=== PATIENT | female | born 1955 | race Caucasian/White ===

== ENCOUNTER 2025-03-11 15:31 | Outpatient (AMB) | payer OTHER, SELFPAY ==
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
[2025-03-11 15:36] VITALS: BP 128/80; PULSE 69; O2SAT 98
--- OUTSIDE RECORDS SUMMARY | 2025-03-11 21:38 | XMS_ITS | Data Portability ---
Author Organization [place] [facility] Address [address] [place] [id number] Care Team Providers Care Freight Team Associate Name Role Phone LATOYA GARCIANCER Primary Care Provider Assessment Encounter Date Assessment Date Assessment LastModified by Organization Details LastModified Time 04/14/2021 04/14/2021 DDX: includs but is not limited to COVID, (rapid neg, PCR pending,) FLu, Rapid negative. Viral Upper respiratory infection. Sinus infection, doubtful, illness only 3 days, no fever, no purulent congestion expressed. Time On Scene with Patient: 00:40:07 [email or web address] Not available 04/16/2021 10:30:25 Plan of Treatment Reminders Order Date Submit Date Provider Last Modified By Organization Details Last Modified Time Details Appointments None recorded. Lab rapid flu (A+B) 2021 022 [email or web address] 0 [facility], [address] [place] [address], [phone], 17:46:13 rapid SARS CoV 2 Ag, QL IA, respiratory specimen 2021 022 [email or web address] 0 [facility], [address] [place] [address], [phone], 14:56:47 unlisted lab - covid-19 (novel coronavirus ) PCR 2021 022 [email or web address] [facility] (Centralized Electronic Ordering - All Locations), Patient Can Go To The Location Of Their Choice, [id number] 22:14:30 Referral None recorded. Procedures None recorded. Surgeries None recorded. Imaging None recorded. Medication Orders None recorded. Patient TargetsNo targets recorded. Patient InstructionsNo instructions recorded. Reason for Referral None Reported. Results Created Date Observation Date Name Description Value Unit Range Abnormal Flag Note LastModifiedBy Organization Detail LastModifiedTime 04/14/19 22 04/18/20212018 NOVEL CORON AVIRU S, PCR covid-19, PCR NOT DETEC PRESTON Refer ence range : NOT DETEC PRESTON (NOTE ) A Not Detec preston resul t means that SARS- CoV-2 RNA was not prese nt in the speci men above the limit of detec tion. A Not Detec preston resul t does not rule out the possi bilit y of COVID -19 and shoul d not be used as the sole basis for treat ment or patie nt manag ement decis ions. If COVID -19 is still suspe cted, based on expos ure histo ry toget her with other clini rachna findi ngs, re-te sting shoul d be consi dered in the sunday xt of clini rachna obser vatio ns and epide miolo gical data for patie nt manag ement decis ions. = Test Metho d: Nucle ic Acid Ampli ficat ion Test inclu ding rever se trans cript ion polym erase chain react ion (RT-P CR) and trans cript ion media preston ampli ficat ion (TMA) . The test metho d meets the [place] Cente rs for Disea se Contr ol and preve ntion ([facility]) pre depar ture and arriv al requi remen t for viral test for COVID -19 dated 2020. Testi ng requi remen ts for travaung story e with time. The patie nt is respo nsibl e for deter minin g the test requi remen ts for each natio n while they are trave ling. This test has been autho rized by the FDA under an Emerg ency Use Autho rizat ion (EUA) for use by autho rized labor atori es. = Pleas e revie w the Fact Sheet s and FDA autho rized label ing avail able for healt h care provi ders and patie nts using the follo wing websi verónica: https ://ww w.que stdia gnost ics.c om/ho me/Co vid-1 9/HCP /Ques tLDT/ fact- sheet .html https ://jaem w.que stdia gnost ics.c om/ho me/Co vid-1 9/Pat ients /Ques tLDT/ fact- sheet .html = Due to the curre nt publi c healt h emerg ency, [employer] ostic s is accep ting sampl es from appro priat e clini rachna sourc es colle cted using wide varie ty of swabs and trans port media for COVID -19. Not detec preston test resul ts deriv ed from speci mens recei beatriz in non- comme rcial ly manuf actur ed viral colle ction kits or those not yet autho rized by FDA for COVID -19 testi ng shozbigniew d be cauti ously evalu ated and take extra preca ution s such as addit ional clini rachna monit oring , inclu ding colle ction of an addit ional speci men. = Addit ional infor matio n about COVID -19 can be found at the [employer] ostic s websi te: www.[employer] uestD [employer]DataInsightso RxEye .Tinypay.me/ Covid 19. Test Perfo rmed by: [facility], [address], [place]. [address] . Labor atory Direc tor: Tate pierre MD. Not Available [facility] (Centralized Electronic Ordering - All Locations) Patient Can Go To The Location Of Their Choice, [id number] 04/18/2021 13:04:48 04/14/19 22 04/14/2021 rapid flu (A+B) Flu A (ref: neg) negati ve Not Available [facility] [address], [place], [address], 04/14/2021 14:55:11 04/14/19 22 04/14/2021 rapid flu (A+B) Flu B (ref: neg) negati ve Not Available [facility] [address], [place], [address], 04/14/2021 14:55:11 04/14/19 22 04/14/2021 rapid flu (A+B) Control Visual ized/V alid Not Available [facility] [address] [place], [address], 04/14/2021 14:55:11 04/14/19 22 04/14/2021 rapid flu (A+B) Location [facility], [address] [place] [address], [id number] Not Available [facility] [address] [place], [address], 04/14/2021 14:55:11 04/14/19 22 04/14/2021 rapid SARS CoV 2 Ag, QL IA, respi rator y speci men Covid-19 (ref: neg) negati ve Not Available [facility] [address] [place] [address], [phone], 04/14/2021 14:55:25 04/14/19 22 04/14/2021 rapid SARS CoV 2 Ag, QL IA, respi rator y speci men Control Visual ized/V alid Not Available [facility] [address] [place] [address], [phone], 04/14/2021 14:55:25 04/14/19 22 04/14/2021 rapid SARS CoV 2 Ag, QL IA, respi rator y speci men Location [facility], [address] [place] [address], [phone] Not Available [facility] [address] [place], [address], 04/14/2021 14:55:25 04/14/19 22 04/14/2021 rapid SARS CoV 2 Ag, QL IA, respi rator y speci men Race & Ethnicity Other Hispan ic or /a/x Not Available [facility] [address] [place] [address], [phone], 04/14/2021 14:55:25 Result Notes None recorded. Medical Equipment None Reported. Allergies Allergen ID Allergen Name Allergen Category Reaction Reaction Severity Criticality Documentation Date Start Date Code Code System Note Provider Name and Address Organization Details Recorded Time 061253 Product containin g penicilli n (product) medicatio n hives rash Not available Not available Not available 04/14/2021 23315 8001 SNOMED CLAIRE Le [address], [place], [address], [place] [facility] 14:35:12 921001 Naprosyn medicatio n nausea Not available Not available 04/14/2021 2 RxNorm CLAIRE Le [address], [place], [address], [place] [facility] 14:35:57 Medications Name Sig Start Date Stop Date Status Note LastModified by Organization Details LastModified Time amlodipine 2.5 mg tablet active Not Available Not Available Not Available doxycycline monohydrate 100 mg tablet active Not Available Not Available No t Available tramadol 50 mg tablet active Not Available Not Available Not Available Mapap (acetaminophen) 500 mg capsule active Not Available Not Availab le Not Available omeprazole 20 mg capsule,delayed release active Not Available Not Available Not Available gabapentin 100 mg capsule active Not Available Not Available Not Available Murine Ear 6.5 % drops active Not Available Not Available Not Available ciclopirox 0.77 % topical gel active Not Available Not Available Not Available hydroxyzine pamoate 25 mg capsule active Not Available Not Available Not Available Vitamin D3 25 mcg (1,000 unit) capsule active Not Available Not Available Not Available cyclobenzaprine 5 mg tablet active Not Available Not Available No t Available Vitals Date Recorded Body temperature Oxygen saturation Respiratory rate Heart rate Systolic And Diastolic Provider Name and Address Organization Details Last Updated DateTime 2 98.8 [degF] 98 % 16 /min 70 /min 124/82 mm[Hg] Not Available [facility] 14:38:40 Social History Question Answer Notes LastModified by Organizat ion Details LastModified Time Tobacco Smoking Status Current Every Day Smoker 6 cig a day CLAIRE Le [address], [place], [address], [place] [facility] 04/14/2021 14:38:17 What Is Your Code Status? Full Code [email or web address] Information not available 04/14/2021 Within The Past 12 Months, Has It Happened That The Food You Bought Just Didn't Last And You Didn't Have Money To Get More. No Information not available 04/14/2021 Within The Past 12 Months, Have You Worried That Your Food Would Run Out Before You Got Money To Buy More. No [email or web address] Information not available 04/14/2021 Fall Risk: Do You Feel Unsteady When Standing Or Walking? No [email or web address] Information not available 04/14/2021 We Know That How And When People Interact With Friends And Family Can Be Very Different From Person To Person. How Often Do You Have The Opportunity To See Or Talk To People That You Care About And Feel Close To? (Ex: Talking To Friends On The Phone Or Visiting Friends Or Family Or Going To [employer] Or Club Meetings) 5 Or More Times Per Week [email or web address] Information not available 04/14/2021 Excessive Alcohol Or Drug Use No [email or web address] Information not available 04/14/2021 Does This Patient Have A PCP? Yes [email or web address] Information not available 04/14/2021 We Know From Many Of Our Patients That Covering All Of Their Costs Can Be Difficult At Times. This Can Cause Stress And Impact Health. In The Past Year, Have You Been Unable To Get Any Of The Following When It Was Really Needed? No [email or web address] Information not available 04/14/2021 What Is Your Housing Situation Today? I Have Housing [email or web address] Information not available 04/14/2021 Would You Like Help Connecting To Resources? None [email or web address] Information not available 04/14/2021 How Many Years Have You Smoked Tobacco? 40 [email or web address] Information not available 04/14/2021 Sex: Unknown Functional Status Question Answer Note LastModified by Organizat ion Details LastModified Time Do you use any illicit or recreational drugs? No [email or web address] Information not available 04/14/2021 Do you or have you ever used any other forms of tobacco or nicotine? No [email or web address] Information not available 04/14/2021 What is your level of alcohol consumption? None [email or web address] Information not available 04/14/2021 Mental Status None recorded. Family History Nothing Reported Notes:mother cancer, father HTN DM Medical History Condition Response Diabetes N CHF N Parkinson's Disease N Cancer N Stroke N Dementia N Asthma N COPD N Depression N Hypothyroidism N Rheumatoid Arthritis N Pulmonary Embolism N Hypertension Y Osteoporosis N A-fib Y Kidney Disease Y Gynecological HistoryNo gynecological history recorded. Obstetrics History GPAL:G 0 P 0 0 0 0 Past Encounters Encounter ID Performer Location Encounter Start Date Encounter Closed Date Diagnosis/Indication Diagnosis SNOMED-CT Code Diagnosis ICD10 Code Diagnosis IMO Codes Diagnosis Note [id number] CLAIRE Le [facility] [address] [facility] [address] 04/14/2021 14:11:08 04/19/2021 17:10:15 Malaise and fatigue 143629982 R53.81 generalize d body aches, fatigue past several days, no fever, feels chills at times. No COVID/Flu vaccinatio ns. Rapid flu and COVID both negative PCR COVID pendingWil l follow up with her PCP, call if any changes or concerns Exposure t o communicable disease 173910890 Z20.822 rapid test negative, she has not been vaccinated . would like PCR done Health Concerns Section Related Observation LastModified by Organization Detai ls LastModified Time None Recorded Concern Status LastModified by Organization Details LastModified Time None Recorded Advance Directives Directive None Recorded Payers Insurance Date Sequence Insurance Name Policy Number Policy Mccarthy Covered Member ID Mcacrthy Member ID Guarantor Name 04/19/2021 2 [place]: [facility] Eldon Rawlsosa [id number] Roxanna Eldon [facility] 04/19/2021 1 [place] [facility] Eldon Rawlsosa [id number] Roxanna Eldon [facility] 04/19/2021 1 [facility] - DOS PRIOR TO 2022 - DUAL ELIGIBLE (MEDICARE REPLACEMENT/AD VANTAGE - HMO) Roxanna Colón [id number] Roxanna Eldon [facility] 04/19/2021 1 [place] [facility] Eldon Rawlsosa [id number] Roxanna Eldon [facility] 04/19/2021 2 [facility] [id number] Roxanna Wheeler 04/19/2021 1 [facility] - DOS PRIOR TO 2022 - DUAL ELIGIBLE (MEDICARE REPLACEMENT/AD VANTAGE - HMO) Roxanna Wheeler [id number] Roxanna Wheeler 04/19/2021 1 *SELF PAY* Roxanna Colón [id number] Roxanna Wheeler 04/19/2021 3 [place] [facility] Roxanna Wheeler [id number] Roxanna Wheeler 04/19/2021 2 [facility] - DOS PRIOR TO 2022 - DUAL ELIGIBLE (MEDICARE REPLACEMENT/AD VANTAGE - HMO) Roxanna Wheeler [id number] Roxanna Wheeler 04/19/2021 1 [facility] - DOS PRIOR TO 2022 - DUAL ELIGIBLE (MEDICARE REPLACEMENT/AD VANTAGE - HMO) Roxanna Wheeler [id number] Roxanna Wheeler 04/19/2021 3 [place] [facility] Roxanna Wheeler [id number] Roxanna Wheeler 04/19/2021 2 [place] [facility] Roxanna Wheeler [id number] Roxanna Wheeler 04/19/2021 2 [place] [facility] Roxanna Wheeler [id number] Roxanna Wheeler 04/19/2021 2 [facility] Roxanna Wheeler [id number] Roxanna Rawlsosa Notes Date Note Type Note Provider Name and Address Organization Details Recorded Time 04/14/2021 text/html This is a 65 yr old female new to who was in her usual state of good health until 3 day ago she began feeling fatigue/ body aches, sinus congestion, chest congestion, little cough, headache 2 nights ago, frontal non throbbing tightening, dull frontal. pain in her nasal bone. no swollen glands. She does not usually get headaches, No vomiting , diarrhea, or constipation, st she headache is mild today. she is eating and drinking fluids. She is retired. No urinary problems.last eye exam 1 month ago. No fever chills. No balance/ visual deficit. No peripheral or focal weakness. No complaints of numbness or tingling. CLAIRE Le [address], [place], [address], [place] [facility] 04/16/2021 10:30:35 OBGyn Episode No OBEpisode recorded.
--- OUTSIDE RECORDS SUMMARY | 2025-03-11 21:38 | XMS_ITS | Data Portability ---
Author Organization [facility], [facility] Address [address] [place] [address] Care Team Providers Care Sales Contracts Analyst Name Role Phone HIM CCA OTHER NILES CORRALES Primary Care Provider [phone] Assessment Encounter Date Assessment Date Assessment LastModified by Organization Details LastModified Time 01/11/2022 01/11/2022 4 days of isolat ed morning dizziness. no prescribed or OTC medications that might be contributing. VSS and no associated symptoms to raise concern for PE, arrhythmia or other CP etiology. No focal weakness to suggest neuro etiology. No recent fever, GI or symptoms to suggest loss of fluids or decreased PO. POC CMP and H/H very reassuring. Provided reassurance to patient. Encouraged morning hydration. She has appt w a new PCP in mid-January. Recommend PCP's office reach out to patient in next few days to confirm she is still doing well and not worsening. if worse lightheadedness, chest pain, shortness of breath, focal weakness call 911 or call us back. [email or web address] Not available 01/11/2022 19:05:36 04/04/2022 04/04/2022 I provided real -time medical direction via phone for this encounter, and was available for additional phone based assistance as needed. I have reviewed and agree with the Assessment and Plan as documented by the Dredge Pipe Operator. Patient given the opportunity to ask questions. [email or web address] Not available 04/04/2022 20:37:43 08/09/2023 08/09/2023 I provided real -time medical direction via phone for this encounter and was available for additional phone-based assistance as needed. I have reviewed and agree with the Assessment and Plan as documented by the Dredge Pipe Operator. Patient given the opportunity to ask questions. Our service contacted for an assessment of: H/A As per above, patient with a RON this MA after going to her eye doctor for a refraction and getting a dilatation. She was told to wear serrano glasses after wards that she states she tried to ear but it is unclear if she wore them and then developed a RON afterwards. Denies RON currently. Denies SOB, CRUZ and CP. Per cell changer on the scene, VSS, AF, non-toxic. FAST assessment is negative. Patient is without neuro deficit and has no speech abnormality. Impression: Likely RON is associated with earlier optic exam Plan: Close observation. Red flags discussed. We discussed the diagnostic uncertainty of home visits and the risk associated with this. In this case, the patient and I felt this to be an acceptable and reasonable amount of risk given the benefit of avoiding an ED visit. We discussed the need to seek care urgently/emergentl y in the setting of any new or worsening serious symptoms, particularly fever chills lightheadedness altered mental status [email or web address] Not available 08/09/2023 21:09:24 01/30/2024 01/30/2024 I have reviewed and agree with the assessment and plan as documented by the cell changer. I provided real-time medical direction for this encounter and was immediately available to provide additional phone-based assistance as needed. 68F presenting with hx of fibromyalgia, recently changed medications. Pt was on NSAID but stopped due to CKD 3, and started on tylenol. Pt has not been using tylenol. Complaints of intermittent dizziness and fibromyalgia pain and anxiety. Has not been using tylenol for a few days due to mis-communication. Examination today unremarkable, vitals at baseline, no neuro deficits. Suspect fibromyalgia symptoms, recommend initiation of tylenol regularly, education provided. Red flags and return precautions discussed. [email or web address] Not available 01/30/2024 19:08:41 Plan of Treatment Reminders Order Date Submit Date Provider Last Modified By Organization Details Last Modified Time Details Appointments None recorded. Lab rapid SARS CoV 2 Ag, QL IA, respiratory specimen 2021 [email or web address], [address] 18:35:28 cmp, whole blood + shy [address], [address] 19:05:37 hemoglobin + hematocrit, [facility] [address] [place] [address], [address] 19:05:37 Referral None recorded. Procedures None recorded. Surgeries None recorded. Imaging None recorded. Medication Orders azithromyci n 250 mg tablet 2021 [id number] [phone] [place], [address], 18:34:31 azithromyci n 250 mg tablet 2021 [email or web address] 0 Not available 18:34:29 meclizine 25 mg tablet 2021 [id number] [phone] [place], [address], 18:34:32 meclizine 25 mg tablet 2021 022 [email or web address] 0 Not available 18:34:29 loratadine 10 mg tablet 2021 022 [id number] [phone] [place], [address], 03:44:08 Patient TargetsNo targets recorded. Patient InstructionsNo instructions recorded. Reason for Referral None Reported. Results Created Date Observation Date Name Description Value Unit Range Abnormal Flag Note LastModifiedBy Organization Detail LastModifiedTime 01/12/2001/11/2022 cmp, whole blood + picco lo ALB 3.6 Not Available [facility] [address], [address] 01/11/2022 18:26:58 01/12/20 22 01/11/2022 cmp, whole blood + picco lo ALP 141 Not Available [facility] [address], [address] 01/11/2022 18:26:58 01/12/2001/11/2022 cmp, whole blood + picco lo ALT 17 Not Available [facility] [address], [address] 01/11/2022 18:26:58 01/12/20 22 01/11/2022 cmp, whole blood + picco lo AST 30 Not Available [facility] [address], [address] 01/11/2022 18:26:58 01/12/20 22 01/11/2022 cmp, whole blood + picco lo BUN 13 Not Available [facility] [address], [address] 01/11/2022 18:26:58 01/12/20 22 01/11/2022 cmp, whole blood + picco lo Ca 9.8 Not Available [facility] [address], [address] 01/11/2022 18:26:58 01/12/20 22 01/11/2022 cmp, whole blood + picco lo CI- normal Not Available [facility] [address], [address] 01/11/2022 18:26:58 01/12/20 22 01/11/2022 cmp, whole blood + picco lo CRE 1.1 Not Available [facility] [address], [address] 01/11/2022 18:26:58 01/12/20 22 01/11/2022 cmp, whole blood + picco lo GLU 122 Not Available [facility] [address], [address] 01/11/2022 18:26:58 01/12/20 22 01/11/2022 cmp, whole blood + picco lo K+ 4.3 Not Available [facility] [address], [address] 01/11/2022 18:26:58 01/12/20 22 01/11/2022 cmp, whole blood + picco lo Na+ 146 Not Available [facility] [address], [address] 01/11/2022 18:26:58 01/12/20 22 01/11/2022 cmp, whole blood + picco lo TBIL 3.7 Not Available [facility] [address], [address] 01/11/2022 18:26:58 01/12/20 22 01/11/2022 cmp, whole blood + picco lo TP 7.5 Not Available [facility] [address], [address] 01/11/2022 18:26:58 01/12/20 22 01/11/2022 hemog lobin + hemat ocrit , blood Hemoglobin 14 Not Available [facility] [address], [address] 01/11/2022 18:27:08 01/12/20 22 01/11/2022 hemog lobin + hemat ocrit , blood Hematocrit 41 Not Available [facility] [address], [address] 01/11/2022 18:27:08 04/04/20 22 04/04/2022 rapid SARS CoV 2 Ag, QL IA, respi rator y speci men rapid SARS CoV 2 Ag, QL IA, respiratory specimen negati ve Not Available [facility] [address], [address] 04/04/2022 18:35:13 Result Notes None recorded. Medical Equipment None Reported. Allergies Allergen ID Allergen Name Allergen Category Reaction Reaction Severity Criticality Documentation Date Start Date Code Code System Note Provider Name and Address Organization Details Recorded Time 1619 aspirin medicatio n Not available Not available Not available 04/04/2022 1191 RxNorm Elise Kumar MD [address] [place] [address],[address], [place], [address], [employer] 2 20:35:33 1620 Naprosyn medicatio n Not available Not available Not available 04/04/2022 2 RxNokeith Kumar MD [address] [place] [address],[address], [place], [address], [employer] 2 20:35:41 469 Product containin g penicilli n (product) medicatio n Not available Not available Not available 08/15/2021 41359 8001 SNOMED Not Available [facility] - production 4 03:40:59 Medications Name Sig Start Date Stop Date Status Note LastModified by Organization Details LastModified Time azithromycin 250 mg tablet TOME 2 TABLETAS POR V A ORAL HOY, [place] TOME 1 TABLETA POR D A EVARISTO 4 D active Not Available Not Available No t Available amlodipine 2.5 mg tablet TOME CHEIKH TABLETA TODOS LOS D active Not Available Not Available No t Available doxycycline monohydrate 100 mg tablet TOME CHEIKH TABLETA DOS VECES AL D A POR 7 D active Not Available Not Available No t Available tramadol 50 mg tablet TOME CHEIKH TABLETA POR V A ORAL CADA SEIS HORAS NEEDED FOR SEVERE PAIN SCALE 7 - 10 active Not Available Not Available No t Available acetaminophen ER 650 mg tablet,extend ed release TOME CHEIKH TABLETA DOS VECES AL D A CUANDO SEA NECESARIO PARA EL DOLOR active Not Available Not Available No t Available hydrocortison e 2.5 % topical cream with perineal applicator APPLY 1 G TOPICALLY 2 TIMES DAILY. active Not Available Not Available No t Available Mapap (acetaminophe n) 500 mg capsule TAKE 2 CAPSULES BY MOUTH EVERY 8 HOURS NEEDED (PAIN). active Not Available Not Available No t Available meclizine 25 mg tablet TAKE 1 TABLET BY MOUTH 3 TIMES A DAY active Not Available Not Available No t Available omeprazole 20 mg capsule,delay ed release TAKE 1 CAPSULE BY MOUTH DAILY NEEDED FOR OTHER (REFLUX). active Not Available Not Available No t Available hydroxyzine HCl 25 mg tablet TOME CHEIKH TABLETA ARGELIA VECES AL D A CUANDO SEA NECESARIO PARA LA ANSIEDAD active Not Available Not Available No t Available gabapentin 100 mg capsule TOME 1 C PSULA POR V A ORAL NIGHTLY active Not Available Not Available No t Available fluticasone propionate 50 mcg/actuation nasal spray,suspens ion INSTILL 2 SPRAYS INTO EACH NOSTRIL ONCE A DAY active Not Available Not Available N ot Available loratadine 10 mg tablet TOME CHEIKH TABLETA TODOS LOS D POR 10 D active Not Available Not Available No t Available ciclopirox 0.77 % topical gel APPLY TO AFFECTED TOENAILS DAILY active Not Available Not Available No t Available Vitamin D3 25 mcg (1,000 unit) capsule TOME CHEIKH C PSULA TODOS LOS D active Not Available Not Available No t Available cyclobenzapri ne 5 mg tablet TAKE 1-2 TABLETS BY MOUTH 3 TIMES DAILY NEEDED FOR MUSCLE SPASMS. active Not Available Not Available No t Available Vitals Date Recorded Respiratory rate Heart rate Body weight Body temperature Oxygen saturation Systolic And Diastolic Provider Name and Address Organization Details Last Updated DateTime 4 18 /min 82 /min 79302.9 04 g 98.2 [degF] 100 % 174/86 mm[Hg] Not Available [facility] - production 4 21:00:21 Date Recorded Respiratory rate Oxygen saturation Heart rate Body height Body temperature Body weight Systolic And Diastolic Provider Name and Address Organization Details Last Updated DateTime 3 18 /min 99 % 63 /min 160.02 cm 97.9 [degF] 04271.6 8 g 164/71 mm[Hg] Not Available [facility] - production 3 17:42:16 Date Recorded Respiratory rate Oxygen saturation Body weight Body height Body temperature Heart rate Heart rate Body weight Body temperature Respiratory rate Body height Oxygen saturation Provider Name and Address Organization Details Last Updated DateTime 2 18 /min 99 % 64271.0 88 g 160.02 cm 98.2 [degF] 66 /min 66 /min 08792.0 88 g 98.2 [degF] 18 /min 160.02 cm 99 % Not Available [facility] - production 2 18:51:22 Date Recorded Systolic And Diastolic Systolic And Diastolic Provider Name and Address Organization Details Last Updated DateTime 01/11/2022 125/83 mm[Hg] 125/83 mm[Hg] Not Available [facility] - production 01/11/2022 18:51:22 Date Recorded Heart rate Oxygen saturation Heart rate Body temperature Respiratory rate Body height Body weight Systolic And Diastolic Systolic And Diastolic Provider Name and Address Organization Details Last Updated DateTime 4 68 /min 98 % 67 /min 98.2 [degF] 16 /min 160.02 cm 23568.6 8 g 148/76 mm[Hg] 158/82 mm[Hg] Not Available [facility] - production 4 19:02:16 Date Recorded Body height Provider Name an d Address Organization Details Last Updated DateTime 04/04/2022 160.02 cm Katie Crain [address] [facility],[address], [place], [address], [place] [facility] 04/04/2022 18:23:29 Date Recorded Oxygen saturation Heart rate Respiratory rate Body temperature Oxygen saturation Respiratory rate Heart rate Body temperature Systolic And Diastolic Systolic And Diastolic Provider Name and Address Organization Details Last Updated DateTime 2 99 % 66 /min 18 /min 98.4 [degF] 99 % 18 /min 66 /min 98.4 [degF] 144/80 mm[Hg] 144/80 mm[Hg] Not Available [facility] - production 2 19:57:02 Social History None recorded. Functional Status None recorded. Mental Status None recorded. Family History Nothing Reported. Medical History No medical history recorded. Gynecological HistoryNo gynecological history recorded. Obstetrics History GPAL:G 0 P 0 0 0 0 Past Encounters Encounter ID Performer Location Encounter Start Date Encounter Closed Date Diagnosis/Indication Diagnosis SNOMED-CT Code Diagnosis ICD10 Code Diagnosis IMO Codes Diagnosis Note [id number] Nile Gomez MD [facility] [address] [place] [phone] 08/11/2021 19:28:02 01/08/2022 16:58:46 COVID-19 836144847 U07.1 [id number] Elise Kumar MD [facility] [address] [place] [phone] 08/15/2021 17:26:01 12/14/2021 18:28:40 Viral syndrome 247684610 B34.9 Covid 19 with dehydratio n [id number] Rosi Welch MD [facility] [address] [place] [phone] 01/11/2022 18:13:36 01/16/2022 14:50:59 Dizziness 283016905 R42 [id number] Elise Kumar MD [facility] [address] [place] [phone] 04/04/2022 18:11:35 04/06/2022 13:46:55 Acute sinusitis 90368450 J01.90 pat has had azithromyc in before w/ good results/ advised hot showers/ meds as directed- rest - to hydrate orally- do not make sudden movements of head until dizziness subsides- avoid bending/li fting- advised should f/u with pcp. [id number] Dominick Santana MD [facility] [address] [place] [phone] 11/13/2022 17:42:07 11/13/2022 23:29:04 Dizziness 283883100 R42 Patient presents with dizziness starting last night. She has a history of vertigo. This feels a bit different, but is still more side to side gait instabilit y than up and down. She has not had syncope. She has no associated cardiovasc ular symptoms.E CG shows sinus bradycardi a.Assessme nt: Low concern for arrhythmia or serious cause of dizziness. Plan: It would be reasonable for her to take home meclizine which she uses PRN. [id number] Nila Vergara MD [facility] [address] [place] [phone] 08/09/2023 21:00:16 08/11/2023 12:33:28 Headache 08925583 R51.9 [id number] Carol Nunes MD [facility] [address] [place] [phone] 01/30/2024 19:02:13 01/30/2024 22:41:04 Pain 60583890 R52 Health Concerns Section Related Observation LastModified by Organization Detai ls LastModified Time None Recorded Concern Status LastModified by Organization Details LastModified Time None Recorded Advance Directives Directive None Recorded Payers Insurance Date Sequence Insurance Name Policy Number Policy Mccarthy Covered Member ID Mccarthy Member ID Guarantor Name 11/13/2022 1 [facility] - DOS PRIOR TO 2022 - DUAL ELIGIBLE (MEDICARE REPLACEMENT/ADV ANTAGE - HMO) [facility] [id number] [facility] 01/30/2024 1 [facility] - DOS ON OR AFTER 2022 - DUAL ELIGIBLE - [employer] OPTIONS AND ONE CARE (MEDICARE REPLACEMENT/ADV ANTAGE - HMO) [facility] [id number] [facility] Notes Date Note Type Note Provider Name and Address Organization Details Recorded Time 01/11/2022 text/html [facility] Nursing Assessment: Reason For Request: rfr: Patient for the last 4 days has been very dizzy in the mornings. If they lay down at any point and then stands back up. Her care team is advising to check blood pressure.Denies: Palpitations, feeling dizzy Chest pain, increased fatigue CHF history, increased swelling and edema Weakness/tachycardia Chief Complaints: Syncope/Dizziness/Li ghtheadednessAllergi es: PenicillinComments: Member has had 4 days of dizziness , member denies any BP medications, does have a h/o AFIB but not currently on any medications for it. Member denies sob/ cp/ F/C/N/V/D 4 days of morning dizziness and then one episode in the afternoonno recent abdominal sx including diarrhea. eating and drinking normally. no chest pain, palpitations or shortness of breath with those episodes. no dysuria, pelvic pain, no frequency, no bowel movement.ho atrial fibrillation, not on any medications for thisvit D, omeprazole, hydroxyzine, acetaminophen extended releasepast meds did include BP meds inc amlodipine but not any moreFollows with [facility] Rosi Welch MD [address] [facility],[address], [place], [address], [employer] 01/11/2022 19:05:59 04/04/2022 text/html ROS as noted in the HPI CRC Nursing Assessment: Patient Reports: Head pain with nausea vomiting; Dizziness with positional change Chief Complaints: Headache Allergies: Penicillin Comments: Member calling with request for eval headache x 3 days +nausea deny fever/chills no OTC's hx vertigo .................... .................... .................... .................... .................... .................... .................... . Dredge Pipe Operator Note: Sent to evaluate pt with complaints of dizziness w/ positional change and ron. Upon arrival, pt laying semi fowlers in bed. Pt is awake and alert, airway open and patent, breathing regular. In full sentences in no acute distress, pt verbalizes that she has hx of vertigo and x3 days ago, developed sinus pressure that extended into her forehead and started becoming dizzy with positional changes-worst by shaking her head side to side. Pt denies fever/chills/actual head pain/sinus congestion/cough/cp/ vomiting/diarrhea/so b. Pt reports x2 episodes of nausea but denies vomiting and reports good PO/fluid intake. (actively drinking water during the visit) Pt's skin is pink, warm, and dry. Pt has some sinus tenderness and states she feels relief from pressure discomfort when applying pressure to her cheeks and nose. Pt also reports mild R ear discomfort last night-External exam of ear is unremarkable. Lung sounds are clear, equal, bilateral. Rapid covid negative. Pt remembers that she has taken meclizine in the past with good effect. Consulted [facility] who ordered 25mg of meclizine, 500mg of azithromycin, and will send multiple scripts to pt's pharmacy. Carried out orders w/o incident. Went over red flags/instructions for pt and answered all questions. No further concerns at this time. .................... .................... .................... .................... .................... .................... .................... . Disposition: FulfilledSEGMD: as above- has no nasal d/c just sinus pressure- describes dizziness as wavy feeling when moves head side to side-m not severe spinning as with previous vertigo Elise Kumar MD [address] [facility],[address], [place], [address], [employer] 04/04/2022 20:41:04 11/13/2022 text/html ROS as noted in the HPI HPI: dizziness, upset stomache, chills this morning. .................... .................... .................... .................... .................... .................... .................... . CRC Nursing Assessment: Reason For Request: Dizziness and GI upset Chief Complaints: Syncope/Dizziness/Li ghtheadedness Allergies: Penicillin Comments: Member requested visit via portal, member called back by this nurse, member identified via /name. Member with dizziness since last night, member has a hx of vertigo and is prescribed antivert, however, she is unsure if what she is experiencing is vertigo. Her dizziness does seem to be exacerbated by position changes. Denies HTN or DM. No headache, chest pain or sob. Member also has an upset stomach, no abdominal pain, no n/v/d. denies fever/chills. Member would like to be evaluated. Dominick Santana MD [address] [place] [address],[address] [facility], [place], [address], [employer] 11/13/2022 17:44:41 08/09/2023 text/html CRC Nurse Triage Notes (Jayshree Lind): Reason For Request: RON/ dizziness Patient Reports: Head pain not relieved by medication greater than 8 hours; Dizziness with positional change Denies: Head pain greater than 8 hours -unrelated to falls or injury Head pain with nausea vomiting Sensitive to light Chief Complaints: Headache, Syncope/Dizziness/Li ghtheadedness PMH: Other Allergies: Penicillin Comments: Substation Supervisor verified the member's name//address and phone number. Member is a 67 yr old female, PMH / Arthritis / Vertigo , fibromyalgia, muscle spasmsMember calling with c/o dizziness and lightheadedness for today. Member has c/o RON , denies any HTN history. Member does have a h/o vertigo. Member does not currently have any medications for vertigo , it . Member denies nausea/vomiting Member is a poor historian about meds and history, she feels off so unsure if that was part of it, hyperverbal but slow to respond, multiple complaints, stating she feels dehydrated Education provided on the response time and the member was advised to monitor reported s/s and seek emergency treatment if needed .................... .................... .................... .................... .................... .................... .................... . Dredge Pipe Operator Note From Gigi Eason: Pt co tension headache behind eyes and forehead. Pt had pupils dilated today and headache was after appt. Upon arrive pt sts she no longer has a headache and feels fine. Pt denies dizziness headache cp sob NVD. Baseline vitals assessed, fast assessment no deficits, equal strength in extremities. [facility] contacted and advised pt to monitor symptoms and education on signs indicating the ER. Dredge Pipe Operator Allergies: Penicillin .................... .................... .................... .................... .................... .................... .................... . Disposition: Margarito Vergara MD [address] [facility],[address], [place], [address], [employer] 08/09/2023 21:09:37 01/30/2024 text/html CRC Nurse Triage Notes (Alea Lincoln): Reason For Request: Patient feels faint, Vertigo, and Anxiety. Also states she has pressure in her head, and lower back pain preventing her from cooking. She smells alcohol . Chief Complaints: Anxiety, Syncope/Dizziness/Li ghtheadedness, Weakness/Lethargy Allergies: Penicillin Comments: Patient calling in to place a referral, identified via name and . PMHx- fibromyalgia, chronic lower back arthritis, vertigo and ?tachycardia. ALLERGIES- PCN. Patient has been feeling dizzy, faint and drowsy intermittently for about a week. She endorses that when she smokes cigarettes' it exacerbates those symptoms. She is also having pressure in her temples, and pain to her lower back. She states that what she is feeling is not her vertigo it is different. She denies headache, vision changes, chest pain, sob, no n/v/d, has had a normal appetite. She would like to be evaluated. RED flags discussed, she verbalized understanding when to call 911. .................... .................... .................... .................... .................... .................... .................... . Dredge Pipe Operator Note From Ricihe Camarillo: [facility] visit for female pt. Pt presents complaining of lightheaded spells for the last week in addition to worsening anxiety. Pt reports worsening lower extremity and back pain relating to arthritis and fibromyalgia. Pt has been reluctant to take prescribed tylenol and vistaril with none taken today and feeling anxious. Pt concerned about possible effects on her kidneys with reported CKD stage 3. V/S taken as listed. Pt afebrile. Lungs clear bilaterally. Orthostatic vital signs taken and virtually unchanged. [place] with [facility] [place] Med[place] who encouraged pt to take tylenol and hydroxyzine as prescribed and follow up with PCP. Reviewed red flags for ED. Pt education provided. .................... .................... .................... .................... .................... .................... .................... . Disposition: Fulfilled Carol Nunes MD [address] [place] [address],[address], [place], [id number], [employer] 01/30/2024 21:47:37 OBGyn Episode No OBEpisode recorded.
== END 2025-03-11 16:18 | disposition home or self-care (01) ==
LOC: HO.HSMS 15:31
PROVIDERS: PCP Internal Medicine; Visit Provider Psychiatry & Neurology Neurology
DX: R25.1 Tremor, unspecified (principal); M54.41 Lumbago with sciatica, right side; G89.29 Other chronic pain
CPT/HCPCS: 99204; G2211

== ENCOUNTER → 2025-03-11 15:31 | Outpatient (BNVA) | payer OTHER, SELFPAY | PROVIDERS: PCP Internal Medicine; Visit Provider Psychiatry & Neurology Neurology | DX: K25.1 Acute gastric ulcer with perforation (principal); M54.41 Lumbago with sciatica, right side; G89.29 Other chronic pain | CPT/HCPCS: 99202 ==